=== PATIENT | female | born 1970 | race Caucasian/White ===

== ENCOUNTER 2024-09-12 15:30 | Emergency (ER) | payer MEDICARE, MEDICAID, SELFPAY ==
[2024-09-12 15:32] VITALS: BP 127/96; PULSE 80; RESP 16; TEMP 37.1; O2SAT 100; BMI 24.2
--- NOTE | 2024-09-12 17:29 | ED.RN ---
pt. assisted via w/c to triage desk by her sister and notified this nurse of a new onset headache and continued nausea at this time. pt. reassured she would see a doctor as soon as possible.
--- NOTE | 2024-09-12 17:56 | EDS_ITS ---
HPI HPI - GI History of Present Illness Chief Complaint: Abd Pain Informant: patient and family Narrative Narrative: Patient has been having 2-3 days of left upper quadrant pain along with nausea and vomiting. Eating when she is able to necessarily make the pain worse. Sometimes radiates into her back but not right now. She has had a cough productive of some phlegm on occasion no fevers or chills. No dyspnea. No pleuritic discomfort or component to this abdominal pain. She states she has been constipated recently but having small bowel movements, does not necessarily help her pain when she does. No blood in her stools or melena. No coffee- ground emesis or hematemesis. She has a history of a stroke that affected her left side. She has had some pain in her lower extremity and torso since the stroke that waxes and wanes, she states this started as post stroke pain she has had in the past, but states this is different now. Prior abdominal surgeries include a gastric bypass, cholecystectomy, herniorrhaphy. [facility] Medical History (Updated 09/12/24 @ 21:[address] Alcon Reddy MD) Stroke Home Medications ?Medication ?Instructions ?Recorded ?Last Taken ?Type cefdinir 300 mg capsule 300 mg PO BID #14 caps 09/12/24 Unknown Rx Allergy/AdvReac Type Severity Reaction Status Date / Time No Known Allergies Allergy Verified 09/12/24 15:35 Surgical History History of herniorrhaphy Hx of cholecystectomy Gastric bypass status for obesity Social History Smoking Status: Current every day smoker tobacco type: cigarettes ROS ROS ED Constitutional Constitutional ED: Denies chills or fever(s) Eyes Eyes: Denies change in vision or diplopia ENT ENT ED: Denies rhinorrhea or sore throat Cardiovascular Cardiovascular: Denies chest pain or palpitations Respiratory/Chest Respiratory/Chest: Reports cough, dyspnea on exertion and sputum; Denies dyspnea Gastrointestinal Gastrointestinal: Reports abdominal pain, constipation, nausea and vomiting; Denies diarrhea, hematemesis, hematochezia or melena Genitourinary Genitourinary ED: Denies dysuria or hematuria Musculoskeletal Musculoskeletal: Reports back pain; Denies neck pain Integumentary Denies abscess or rash Neurologic Neurologic: Reports weakness; Denies headache(s) or paresthesias Psychiatric Psychiatric: Denies anxiety or suicidal thoughts EXAM Physical Exam Const Vital Signs: 09/12/24 15:32 09/12/24 18:21 09/12/24 20:00 Temperature 98.7 F Temperature Source Oral Pulse Rate 80 74 69 Respiratory Rate 16 18 16 Blood Pressure 127/96 H 160/82 H 158/89 H Blood Pressure Mean 106 108 112 Pulse Ox 100 95 97 Oxygen Delivery Method Room Air Room Air Room Air Positive well nourished and well developed General Appearance ED: well developed and NAD HEENT Reports moist mucous membranes normocephalic and atraumatic Eyes PERRL and EOMs intact bilaterally Neck full ROM and supple Resp normal respiratory effort and clear to auscultation bilaterally Cardio regular rate, regular rhythm and no murmurs GI non-distended GI Narrative: Tender left upper quadrant mostly, less in the epigastrium. Otherwise benign abdomen. Auscultation: normoactive bowel sounds Palpation: soft Back/Spine no CVA tenderness General Back: other FROM Extremity normal to inspection General Extremety ED: Negative for edema, pulses abnormal or tenderness General Extremity: Negative for edema or pulses abnormal Neuro oriented x3, CN's II-XII intact bilaterally and no sensory deficits noted Neuro Narrative: Contractures and weakness in the left arm and leg. Stable per patient. Sensorium / Orientation: awake and alert Psych mental status grossly normal and thought process normal Skin no rashes or lesions noted and no wounds MDM MDM MDM Narrative Medical decision making narrative: Although the patient has pretty normal-sounding bowel sounds I think reasonable to obtain imaging to rule out an obstruction of her bowel, in addition to left lower lobe pneumonia. 1 view chest x-ray on my interpretation is negative for pneumonia, radiology in agreement, labs are noted. They are largely unremarkable except for very slight elevations of AST and ALT, and her urine appears to be infected. I sent this for culture. I sent her for CT of the abdomen/pelvis, I reviewed the images and the report which I agree with, it is basically consistent with significant constipation/fecal retention, and a small right lower lobe consolidation that was not seen on the chest x-ray as noted, this may represent acute pneumonia given her symptoms that are relatively acute. We did a rectal with the patient's consent with nurse training program developer, she is not obstipated I do not feel any hard stool. Patient was then wanting a soapsuds enema prior to going home and continuing stool softeners and laxatives as needed. Were treating her with cefdinir to cover many causes of pneumonia as well as her urine infection. She can be discharged home given her vital signs are normal, she is not dyspneic and her oxygenation is excellent. Lab Data Attestation: I reviewed the patient's lab results. Labs: Laboratory Results - last 24 hr 09/12/24 09/12/24 17:42 19:26 WBC 3.8 L RBC 4.16 L Hgb 12.0 Hct 36.6 L MCV 88.0 MCH 28.8 MCHC 32.8 RDW Std Deviation 45.2 H RDW Coeff of Pee 14.0 Plt Count 219 MPV 9.3 Immature Gran % (Auto) 0.300 Neut % (Auto) 65.4 Lymph % (Auto) 25.8 [place] % (Auto) 7.9 Eos % (Auto) 0.3 Baso % (Auto) 0.3 Absolute Neuts (auto) 2.5 Absolute Lymphs (auto) 0.98 Nucleated RBC % 0 Sodium 135 L Potassium 3.3 L Chloride 102 Carbon Dioxide 26.0 Anion Gap 7 BUN 13 Creatinine 0.62 Estim Creat Clear Calc 83.44 Est GFR (MDRD) Af Amer 131 Est GFR (MDRD) Non-Af 108 BUN/Creatinine Ratio 21.1 H Glucose 142 H Calcium 9.5 Total Bilirubin 0.40 AST 63 H ALT 80 H Alkaline Phosphatase 102 Total Protein 8.0 Albumin 3.3 Globulin 4.7 H Albumin/Globulin Ratio 0.7 L Lipase < 10 L Urine Color Yellow Urine Clarity Cloudy Urine pH 7.0 Ur Specific [place] 1.010 Urine Protein 30 H Urine Glucose (UA) Normal Urine Ketones 50 H Urine Occult Blood 250 H Urine Nitrite Positive H Urine Bilirubin Negative Urine Urobilinogen 4 H Ur Leukocyte Esterase 500 H Urine RBC 10-25 SEEN Urine WBC 50-100 SEEN Ur Squamous Epith Cells 5-10 SEEN Ur Renal Epithelial Cell 0-5 SEEN Urine Bacteria 3+ WBC Casts 5-10 SEEN Urine Mucus 1+ Radiography Diagnostic Testing: Clinical Impression(s) from Imaging Studies Chest X-Ray 09/12/24 18:30 IMPRESSION: No radiographic evidence of acute cardiopulmonary disease. Electronically Signed: Sedrick Ruano MD at 19:24 EST , Abdomen/Pelvis CT 09/12/24 18:35 IMPRESSION: No acute findings in the abdomen or pelvis. Increased distal colonic fecal burden with possible fecal impaction. Focal opacity right lower lobe posteriorly., Findings of unknown chronicity. This may represent focal area of inflammation/infection but other etiologies not excluded and three-month follow-up for resolution recommended. Electronically Signed: Sedrick Ruano MD at 19:55 EST , Discharge Plan Triage Chief Complaint: Abd Pain Other Complaint: Nausea/Vomiting ED Provider: Alcon Reddy Dx/Rx/DC Orders Clinical Impression: Acute cystitis without hematuria, Pneumonia, Constipation, Left sided abdominal pain Instructions: ED Constipation (Adult) Prescriptions: New cefdinir 300 mg capsule 300 mg PO BID Qty: 14 0RF Primary Care Provider: Odette Bianchi Referrals: Odette Bianchi MD [Primary Care Provider] - 3-5 Days Print Language: Welsh Disposition Disposition: Home, Self Care
[2024-09-12] MEDS: 0.9% Normal Saline (1000mL) 1,000 ML 999 ML IV (18:15)
[2024-09-12] MEDS: Morphine 4 MG/ML Syringe IV (18:15)
[2024-09-12] MEDS: Ondansetron 4 MG/2 ML Vial IV (18:15)
[2024-09-12 18:21] VITALS: BP 160/82; PULSE 74; RESP 18; O2SAT 95
[2024-09-12 18:27] LABS: ALB/GLOB Ratio 0.7 RATIO (0.9-2.4); AST(SGOT) 63 U/L (15-37); Alanine Aminotransfer ALT/SGPT 80 U/L (13-56); Albumin, Serum 3.3 g/dL (3.2-5.0); Alkaline Phosphatase 102 U/L (45-117); Anion Gap 7 (5-15); BUN 13 mg/dL (7-18); BUN/Creat Ratio 21.1 RATIO (10-20); Calcium,Total 9.5 mg/dL (8.5-10.1); Chloride 102 mmol/L (98-107); Creatinine, Serum 0.62 mg/dL (0.55-1.02); EST Glomerular Filtration Rate 108 mL/min (>60); Est Glom Filt Rate - Afr Amer 131 mL/min (>60); Estimated Creatinine Clearance 83.44 ml/min; Globulin 4.7 g/dL (2.2-4.2); Glucose 142 mg/dL (74-106); Lipase < 10 U/L (13-75); Potassium 3.3 mmol/L (3.5-5.1); Sodium Level 135 mmol/L (136-145)
--- NOTE | 2024-09-12 18:30 | RAD_ITS ---
INDICATION: cough, LUQ pain, n/v EXAMINATION/TECHNIQUE: X-RAY - portable upright AP chest x-ray COMPARISON: None. FINDINGS: LINES/DEVICES: None. LUNGS: No consolidation, edema or effusion. No pneumothorax. MEDIASTINUM AND CARDIOVASCULAR STRUCTURES: Cardiac silhouette not enlarged. Central airways and mediastinal contour are unremarkable. BONES AND SOFT TISSUES: Unremarkable. RAD/Chest 1 View (Portable) IMPRESSION: No radiographic evidence of acute cardiopulmonary disease. Electronically Signed: Sedrick Ruano MD at 19:24 EST ,
[2024-09-12 18:31] LABS: Absolute Lymphocyte Count 0.98 X10^3/uL (0.83-4.51); Absolute Neutrophil Count 2.5 X10^3/uL (2.0-7.7); Basophil# 0.01 X10^3/uL; Basophil% 0.3 % (0-1); Eosinophil# 0.01 X10^3/uL; Eosinophils% 0.3 % (0-5); Hematocrit 36.6 % (37-47); Lymphocyte # 0.98 X10^3/ul (0.83-4.51); Lymphocyte % 25.8 % (19-41); Mean Corp Hgb Conc 32.8 g/dL (32-36); Mean Corpuscular Hgb 28.8 pg (27.0-32.0); Mean Platelet Vol. 9.3 fl (6.2-12.0); Monocyte% 7.9 % (0-10); NRBC Flagged by Analyzer 0 % (0-5); Neutrophil # 2.49 X10^3/uL (2.7-7.7); Neutrophil % 65.4 % (47-70); Platelet Count 219 K/mm3 (150-450); RBC Distribution Width SD 45.2 fl (35.1-43.9); Red Blood Count 4.16 M/mm3 (4.2-5.4); White Blood Count 3.8 K/mm3 (4.4-11.0)
--- NOTE | 2024-09-12 18:35 | CT_ITS ---
INDICATION: Left-sided abdominal pain with nausea and vomiting EXAMINATION: CT ABDOMEN AND PELVIS WITH CONTRAST - CT Abdomen And Pelvis W/ Contrast Injection TECHNIQUE: Helically acquired images were obtained of the abdomen and pelvis following IV contrast. A radiation dose optimization technique was used for this scan. IV Contrast dosage and agent: 100 cc Isovue-300 Oral contrast: None. COMPARISON: None. FINDINGS: LOWER CHEST: Small opacity right lower lobe posteriorly. No pleural effusion. No cardiomegaly or pericardial effusion. LIVER: Homogeneous. No concerning focal mass. GALLBLADDER AND BILIARY TREE: Cholecystectomy. No intra- or extrahepatic biliary ductal dilation. PANCREAS: No focal cystic or solid mass. SPLEEN: Normal size without focal cystic or solid mass. ADRENAL GLANDS: No nodules. KIDNEYS AND URETERS: Uniform parenchymal enhancement. No hydronephrosis. PERITONEUM: No ascites or free air. BOWEL: No evidence of acute appendicitis. No stomach or bowel distension. No focal inflammatory change. Distal colonic fecal burden increased with moderate rectal fecal distention. LYMPH NODES: No enlarged mesenteric or retroperitoneal lymph nodes. VESSELS: Aorta is non-dilated. URINARY BLADDER: Partially obscured by beam hardening artifact from the bilateral hip prostheses. REPRODUCTIVE ORGANS: Beam hardening artifact from bilateral hip prostheses obscures significant portion of the pelvis. No gross mass identified. ABDOMINAL WALL: No discrete abdominal or pelvic wall hernia. BONES: No acute or aggressive osseous abnormality. CT/Abdomen/Pelvis W IV Cont ONLY IMPRESSION: No acute findings in the abdomen or pelvis. Increased distal colonic fecal burden with possible fecal impaction. Focal opacity right lower lobe posteriorly., Findings of unknown chronicity. This may represent focal area of inflammation/infection but other etiologies not excluded and three-month follow-up for resolution recommended. Electronically Signed: Sedrick Ruano MD at 19:55 EST ,
[2024-09-12 19:43] LABS: Color, Urine Yellow (Yellow); Glucose, Dipstick Normal (Normal); Ketone-Dipstick 50 mg/dl (Negative); Leukocyte Esterase-Dipstick 500 /ul (Negative); Nitrite-Dipstick Positive (Negative); Occult Blood-Urine 250 /ul (Negative); Protein-Dipstick 30 mg/dl (Negative); Urine Bilirubin Dipstick Negative (Negative); Urine Clarity Cloudy (Clear); Urine Urobilinogen 4 mg/dl (Normal)
[2024-09-12 20:00] VITALS: BP 158/89; PULSE 69; RESP 16; O2SAT 97
[2024-09-12 20:06] LABS: Bacteria 3+ /hpf (None Seen); Mucous, Urine 1+ /hpf (<or=2+); Red Blood Cells-Urine 10-25 SEEN /hpf (0-5); Renal Epithelial Cells 0-5 SEEN /hpf (0-5); Squamous Epithelial Cells - UA 5-10 SEEN /hpf (5-10); White Blood Cells 50-100 SEEN /hpf (0-5)
[2024-09-12 20:07] LABS: White Cell Cast 5-10 SEEN /lpf (None Seen)
[2024-09-12] MEDS: Cefdinir 300 MG Capsule PO (21:45)
[2024-09-12 22:00] VITALS: BP 148/91; PULSE 72; RESP 16; O2SAT 96
[2024-09-12 22:05] VITALS: BP 148/91; PULSE 72; RESP 16; TEMP 36.7; O2SAT 96
== END 2024-09-12 22:16 | disposition home or self-care (01) ==
PROVIDERS: Emergency Provider Emergency Medicine; PCP Internal Medicine; Visit Provider Emergency Medicine
DX: N30.00 Acute cystitis without hematuria (principal); J18.9 Pneumonia, unspecified organism; F17.210 Nicotine dependence, cigarettes, uncomplicated; Z86.73 Personal history of transient ischemic attack (TIA), and cerebral infarction without residual deficits; Z90.49 Acquired absence of other specified parts of digestive tract; Z98.84 Bariatric surgery status; K59.00 Constipation, unspecified; R10.32 Left lower quadrant pain
CPT/HCPCS: 71045; 74177; 80053; 81001; 83690; 85025; 87077; 87086; 87088; 87186; 96361; 96374; 96375; 99285; Q9967; A4216; J2405